=== PATIENT | female | born 1955 | race Caucasian/White ===

== ENCOUNTER 2022-12-14 13:06 | Outpatient (AMB) | payer OTHER, SELFPAY ==
--- NOTE | 2022-12-14 13:08 | MHC.OFFVIS ---
Intake Vital Signs 12/14/22 13:10 Height 4 ft 11.29 in Weight 118 lb 9.739 oz BMI 23.7 BP 124/62 Blood Pressure Location Rt brachial Position Sitting Pulse 88 Pulse Source Pulse Oximeter Pulse Oximetry (%) 98 Intake Visit Reasons: RA Intake Note: New pt presents today for RA consult. Following [facility] pain mgmt scheduled for back injection next week Medical Assistant Required: No Accompanied by: Self / Same As Patient Allergies erythromycin base Adverse Reaction (Mild, Verified 12/14/22 13:22) Nausea and Vomiting Medication List - Last Reconciled 12/14/22 by Yoselin Mcpherson MD Enbrel SureClick (etanercept) subcutaneously every 9 days NS gabapentin 300 mg PO DAILY hydrochlorothiazide 12.5 mg PO DAILY latanoprost 0.005% drps ophthalmic (eye) lisinopril 5 mg PO DAILY multivitamin 1 tab PO DAILY tramadol 50 mg PO DAILY PRN HPI HPI Comments History of Present Illness Details This is a 67-year-old female with a past medical history of seropositive RA who presents as a new patient. 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 She states that she was diagnosed with rheumatoid arthritis about 25 years ago. She was on methotrexate for a couple of months and could not tolerate it due to GI upset. Also took hydroxychloroquine for about 2 months and could not tolerate it due to GI upset. She had been on Enbrel for more than 20 years. States that around 5 years ago the dose was spaced out to every 9 days. Patient states that she is doing well overall. Her disease has been in remission for many years. She is having right lower back pain and scheduled for an injection next week with pain management. States that her maternal grandmother had RA. There is reported history of Sjogren's in her chart. Patient denies any history of dry eyes or dry mouth. Denies any history of parotid swelling. She is unaware of this diagnosis. She denies any history of DVT/PE [facility] Medical History (Updated 12/14/22 @ 13:49 by Yoselin Mcpherson MD) Osteopenia Osteochondropathy Degeneration of cervical intervertebral disc Degenerative joint disease of hand Inflammatory polyarthropathy Rheumatoid arthritis Sjogren's syndrome Hyperlipidemia Surgical History History of lumpectomy of right breast Hx of tubal ligation Family History Mother Breast cancer, Onset Age: 78 Malignant neoplasm of uterus Father Colon cancer, Onset Age: 65 Paternal Aunt Breast tumor Sister Rheumatoid arthritis Maternal Grandmother Rheumatoid arthritis Social History Household Members: Spouse Alcohol intake: current Alcohol intake frequency: a few times a week Patient Tobacco Use Status: Former Tobacco user Female Reproductive History Menstrual Total pregnancies: 2 Number of Living Children: 0 Physical Exam Vital Signs: Last Vital Signs Pulse 88 12/14/22 13:10 BP 124/62 12/14/22 13:10 Pulse Ox 98 12/14/22 13:10 BMI result Body Mass Index 23.7 Const General: cooperative, healthy appearing and comfortable Nutritional Appearance: average body habitus Orientation/consciousness: patient oriented x3 Limitations: no limitations HEENT Head: Yes normocephalic and Yes atraumatic Mouth: moist mucous membranes Resp Effort & Inspection: normal respiratory effort and able to speak in complete sentences Auscultation: clear to auscultation bilaterally Cardio Rate: regular rate Rhythm: regular rhythm Heart sounds: S1 normal heart sound present GI Inspection: No distended Palpation (GI): Soft to palpation and nontender Skin General skin exam: no rashes or lesions noted Neuro General: patient oriented x3 Extrem Other: Osteoarthritic changes of both hands with no active synovitis Squaring of bilateral 1st CMC joints Left 1st CMC tenderness Normal nailfold capillaroscopy Normal range of motion of both hands, elbows, wrists, shoulders without pain Results Reviewed Results Reviewed: Labs 12/2021? CRP undetectable? CMP unremarkable except for mildly elevated AST 39 (<37) Vitamin-D 32.7? TSH 1.76? ESR 5.0 GGT 168 (3-65) CBC unremarkable Assessment & Plan Assessment & Plan (1) Rheumatoid arthritis: Code(s): M06.9 - Rheumatoid arthritis, unspecified Qualifiers: Rheumatoid arthritis location: multiple sites Rheumatoid factor presence: with rheumatoid factor Qualified Code(s): M05.79 - Rheumatoid arthritis with rheumatoid factor of multiple sites without organ or systems involvement Plan: This is a 67-year-old female with a past medical history of seropositive RA who presents as a new patient.? 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 She states that she was diagnosed with rheumatoid arthritis about 25 years ago.? She was on methotrexate for a couple of months and could not tolerate it due to GI upset.? Also took hydroxychloroquine for about 2 months and could not tolerate it due to GI upset.? She had been on Enbrel for more than 20 years.? States that around 5 years ago the dose was spaced out to every 9 days. Check disease activity labs and Infectious screening labs. Continue with Enbrel 50 mg every 9 days Follow-up in 6 months (2) Sjogren's syndrome: Code(s): M35.00 - Sjogren syndrome, unspecified Qualifiers: Sjogren organ or system involvement: unspecified organ involvement Qualified Code(s): M35.00 - Sjogren syndrome, unspecified Plan: There is documented history of Sjogren's in the chart. Patient does not recall any sicca symptoms or parotid swelling. Will check Sjogren's antibodies (3) Screening for osteoporosis: Code(s): Z13.820 - Encounter for screening for osteoporosis Plan: Mentions that her most recent bone density scan was a few years ago. Will request records from her PCP's office. Will consider repeating it to evaluate for osteoporosis (4) Immunization counseling: Code(s): Z71.85 - Encounter for immunization safety counseling Plan: Discussed ACR vaccination guidelines for adults with autoimmune rheumatic disease on immune suppression. Patient already received her flu vaccine for this season. Advised patient to get the new COVID booster. No need to hold Enbrel Plan I spent 46 minutes reviewing patient's chart, evaluating patient, ordering diagnostic workup, counseling patient and documenting in the chart Orders: Orders Complete Blood Count Auto Diff Today M06.9 - Rheumatoid arthritis, unspecified Comprehensive Met. Panel Today M06.9 - Rheumatoid arthritis, unspecified Immunofixation Pnl, Serum Today M06.9 - Rheumatoid arthritis, unspecified Protein Electrophoresis, Serum Today M06.9 - Rheumatoid arthritis, unspecified T Spot TB Today Z11.7 - Encounter for testing for latent tuberculosis infection Anti DNA DS Antibody Today M35.00 - Sjogren syndrome, unspecified Complement C3 Today M35.00 - Sjogren syndrome, unspecified Protein Creatinine Ratio, Ur Today M35.00 - Sjogren syndrome, unspecified Sjogren's Antibodies Today M35.00 - Sjogren syndrome, unspecified UA w Microscopic Today M35.00 - Sjogren syndrome, unspecified C Reactive Protein Today M06.9 - Rheumatoid arthritis, unspecified Erythrocyte Sedimentation Rate Today M06.9 - Rheumatoid arthritis, unspecified Hepatitis A,B,C Profile Today Z11.59 - Encounter for screening for other viral diseases Rheumatoid Factor Today M06.9 - Rheumatoid arthritis, unspecified Cyclic Citrullinated Peptide Today M06.9 - Rheumatoid arthritis, unspecified EREN Reflex Titer and Pattern Today M35.00 - Sjogren syndrome, unspecified Anti Extractable Nuclear Ag Today M35.00 - Sjogren syndrome, unspecified Complement C4 Today M35.00 - Sjogren syndrome, unspecified Medications: New Enbrel SureClick (etanercept) subcutaneously every 9 days 4 mL 4RF NS Coding Level of Care Code New Pt Level 4 (41898) Diagnoses Rheumatoid arthritis involving multiple sites with positive rheumatoid factor M05.79 Rheumatoid arthritis location: multiple sites Rheumatoid factor presence: with rheumatoid factor Sjogren's syndrome, with unspecified organ involvement M35.00 Sjogren organ or system involvement: unspecified organ involvement Screening for osteoporosis Z13.820 Immunization counseling Z71.85
[2022-12-14 13:10] VITALS: BP 124/62; PULSE 88; O2SAT 98; BMI 23.7
== END 2022-12-14 13:43 | disposition home or self-care (01) ==
PROVIDERS: PCP Nurse Practitioner Family; Visit Provider Student in an Organized Health Care Education/Training Program
DX: M05.79 Rheumatoid arthritis with rheumatoid factor of multiple sites without organ or systems involvement (principal); M35.00 Sjogren syndrome, unspecified; Z13.820 Encounter for screening for osteoporosis; Z71.85 Encounter for immunization safety counseling
CPT/HCPCS: 99204

== ENCOUNTER → 2022-12-14 13:06 | Outpatient (BNVA) | payer OTHER, SELFPAY | PROVIDERS: PCP Nurse Practitioner Family; Visit Provider Student in an Organized Health Care Education/Training Program ==